=== PATIENT | male | born 1980 | race Caucasian/White ===

== ENCOUNTER → 2018-05-07 | Outpatient (CLI) | payer OTHER | END | disposition home or self-care (01) | LOC: RAD 16:01 | PROVIDERS: ATTEND Family Medicine | DX: R10.31 Right lower quadrant pain (principal) | CPT/HCPCS: 76857 ==

== ENCOUNTER 2018-09-12 08:40 | Emergency (ER) | payer OTHER ==
[~2018-09-12] VITALS: Ht 177.8 cm; Wt 89.0 kg
[2018-09-12] MEDS ORDERED: MORPHINE SULFATE 4 MG/ML, 1ML ONE ×2 (09:41→11:32)
[2018-09-12] MEDS ORDERED: ONDANSETRON 2MG/ML, 2ML ONE (09:41)
[2018-09-12] MEDS: MORPHINE SULFATE 4 MG/ML, 1ML IVPush PRN ×2 (09:55→11:36)
[2018-09-12] MEDS ORDERED: ONDANSETRON 2MG/ML, 2ML IVPush ONE (10:00)
[2018-09-12] MEDS ORDERED: SODIUM CHLORIDE 0.9% 1,000ML IVBOLUS ONE (10:00)
[2018-09-12 10:02] LABS: BASOPHILS # (AUTO) 0.03 x10^3/uL (0-0.1); BASOPHILS % (AUTO) 0 % (0-1); EOSINOPHILS # (AUTO) 0.07 x10^3/uL (0-0.4); EOSINOPHILS % (AUTO) 1 % (1-7); LYMPHOCYTES # (AUTO) 1.41 x10^3/uL (1-3.4); LYMPHOCYTES % (AUTO) 16 % (22-44); MD NO; MEAN CORPUSCULAR HEMOGLOBIN 31.4 pg (27.5-34.5); MEAN CORPUSCULAR HGB CONC 33.2 g/dL (33.2-36.2); MEAN CORPUSCULAR VOLUME 94.5 fL (81-97); MEAN PLATELET VOLUME 7.4 fL (7.4-10.4); MONOCYTES % (AUTO) 10 % (2-9); NEUTROPHILS # (AUTO) 6.62 x10^3/uL (1.8-6.8); NEUTROPHILS % (AUTO) 73 % (42-75); PLATELET COUNT 165 x10^3/uL (130-400); RED BLOOD COUNT 4.96 x10^6/uL (4.38-5.82); RED CELL DISTRIBUTION WIDTH 12.4 % (9.4-14.8)
--- NOTE | 2018-09-12 10:03 | NUR ---
PT. IS A & O X 4 WITH C/O BACK PAIN AFTER MOVING OBJECTS FOR HIS PARENTS THIS LAST WEEKEND. PT. DOES STATE THE PAIN RADIATES TO HIS LEFT LOWER QUADRANT. PT. DENIES URINARY SYMPTOMS. UA COLLECTED AND SENT. PT.'S LUNGS ARE CTA. MM ARE PINK AND MOIST WITH PULSES +2 THROUGHOUT. IV ACCESS ESTABLISHED AND PT. WAS MEDICATED FOR PAIN. PT.'S ABD. IS SOFT AND FLAT WITH BS + X 4 QUADS. PT. DENIES URINARY SYMPTOMS. SIDERAILS REMAIN UP X 2 WITH THE CALL LIGHT IN PLACE. PT.'S HOB IS ELEVATED GREATER THAN 30 DEGREES. PT. WAS GIVEN A BLANKET FOR WARMTH AND HIS NS BOLUS IS INFUSING WO. PT. WAS PLACED ON THE PULSE OX AND BP CUFF. REPORT WAS GIVEN TO SARITHA AVILES.
[2018-09-12 10:09] LABS: ALBUMIN 3.7 g/dL (3.4-5.0); ANION GAP 6 mmol/L (5-15); CALCIUM 8.9 mg/dL (8.5-10.1); CHLORIDE 106 mmol/L (98-107)
--- NOTE | 2018-09-12 10:09 | NUR ---
RECEIVED REPORT FROM REZA Mello RN. PT RESTING IN BED IN NAD. PT REPORTS PAIN IS BETTER AFTER MORPHINE. UA COLLECTED AND SENT TO THE LAB.
[2018-09-12 10:13] LABS: ALANINE AMINOTRANSFERASE 33 U/L (12-78); ALKALINE PHOSPHATASE 41 U/L (45-117); CREATININE 1.16 mg/dL (0.7-1.3); TOTAL PROTEIN 7.5 g/dL (6.4-8.2)
[2018-09-12 10:14] LABS: MICROSCOPIC NOT IND
[2018-09-12 10:34] LABS: CULTURE INDICATED? NO
--- NOTE | 2018-09-12 10:46 | NUR ---
PT BACK FROM CT.
--- NOTE | 2018-09-12 11:24 | NUR ---
CHART UP FOR MD RECHECK. PT AWARE.
[2018-09-12] MEDS ORDERED: CEFTRIAXONE PMX 1GM/50ML 50 ML IV ONE (11:30)
[2018-09-12] MEDS ORDERED: METRONIDAZOLE PMX 500MG/100ML 100 ML IV ONE (11:30)
[2018-09-12] MEDS ORDERED: METRONIDAZOLE PMX 500MG/100ML 100 ML ONE (11:32)
[2018-09-12] MEDS ORDERED: CEFTRIAXONE PMX 1GM/50ML 50 ML ONE (11:32)
--- NOTE | 2018-09-12 11:40 | NUR ---
PT REMEDICATED PER MD ORDER FOR PAIN. PT TO GET IV ANTIBIOTICS FOR DIVERTICULIITS.
[2018-09-12 13:20] VITALS: BP 103/64
== END 2018-09-12 13:27 | disposition home or self-care (01) ==
LOC: ED 10:52
DX: K57.32 Diverticulitis of large intestine without perforation or abscess without bleeding (principal); Z90.49 Acquired absence of other specified parts of digestive tract
CPT/HCPCS: 36415; 74177; 80053; 81003; 83690; 85025; 96365; 96367; 96375; 96376; 99284; J0696; J2270; J2405; J7030